=== PATIENT | male | born 1990 | race Caucasian/White ===

== ENCOUNTER 2022-05-11 14:14 | Outpatient (CLI) | payer OTHER, SELFPAY ==
[2022-05-11 15:01] LABS: Mean Corpuscular HGB Conc 32.6 g/dl (32-36); Mean Corpuscular Hemoglobin 29.7 pg (26-34); Mean Corpuscular Volume 91.1 fl (80-100); Mean Platelet Volume 10.5 fl (7.4-10.4); Platelet Count Result 242 k/mm3 (150-375); Red Blood Count 5.05 M/mm3 (4.6-6.20); Red Cell Distribution Width 12.6 % (11.5-14.5); White Blood Count 6.4 K/mm3 (4.5-10.0)
[2022-05-11 16:51] LABS: Iron 120 ug/dL (49-181)
[2022-05-11 17:01] LABS: Percent Iron Saturation 37 % (20-50)
[2022-05-11 17:10] LABS: Vitamin D 25 Hydroxy 59.9 ng/mL
== END 2022-05-11 14:15 | disposition home or self-care (01) ==
LOC: ANHLAB 14:20
PROVIDERS: Visit Provider Nurse Practitioner Family
DX: R53.83 Other fatigue (principal); R40.0 Somnolence
CPT/HCPCS: 36415; 82306; 82607; 82728; 83540; 83550; 84443; 85027

== ENCOUNTER 2022-06-05 07:46 | Outpatient (CLI) | payer OTHER, SELFPAY ==
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
[2022-06-17 12:15] VITALS: BMI 25.1
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
[2022-06-17 12:34] VITALS: BMI 25.1
== END 2022-06-06 15:31 | disposition home or self-care (01) ==
PROVIDERS: Visit Provider Nurse Practitioner Family
DX: G47.19 Other hypersomnia (principal); G47.61 Periodic limb movement disorder; G47.419 Narcolepsy without cataplexy
CPT/HCPCS: 95805; 95810

== ENCOUNTER 2022-08-04 10:54 | Emergency (ER) | payer OTHER, SELFPAY ==
--- NOTE | 2022-08-04 10:59 | ED.URI ---
HPI - URI/Sore Throat General Chief Complaint: Upper Respiratory Infection Stated Complaint: HEADACHE/SORE THROAT/NASAL CONGESTION Time Seen by Provider: 08/04/22 10:59 Source: patient and RN notes reviewed Related Data Allergies Allergy/AdvReac Type Severity Reaction Status Date / Time No Known Allergies Allergy Verified 06/25/22 08:46 Review of Systems Review of Systems: CONSTITUTIONAL: Denies fever, chills, or sweats. EYES: Denies visual changes, redness, or discharge. ENT: Denies rhinorrhea, congestion, sore throat, or otalgia. CARDIOVASCULAR: Denies chest pain, palpitations, or edema. RESPIRATORY: Denies cough or dyspnea. GASTROINTESTINAL: Denies abdominal pain, nausea, vomiting, or diarrhea. GENITOURINARY: Denies dysuria or hematuria. SKIN: Denies rash or itching. MUSCULOSKELETAL: Denies back pain, joint pain, or myalgia. NEUROLOGIC: Denies headache, numbness, or weakness. PSYCHIATRIC: Denies anxiety or depression. All other systems reviewed are negative, except as documented in HPI. [facility] Past Medical History Medical History Narcolepsy PLMD (periodic limb movement disorder) Social History Social History Smoking packs per day: 0.20 Smoking cigarettes per day: 4.0 Years smoked: 4 Smoking pack-years: 0.80 Smoking status: Former smoker Tobacco type: cigarettes Smoking end date: 08/19/10 Alcohol intake: current Alcohol use details: 1-2 beers/week Lack of Transportation: No Lack of Food: Never True Current Housing: I Have Housing Concerned About Future Housing: No Difficulty Paying Gas/Electric Bills: No Difficulty Paying for Meds: No Currently Unemployed: No Education: Master's Degree or Higher Difficulty w/ Childcare or Family Care: No 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 There is no relevant family history pertinent to the patient complaint. Exam Narrative: GENERAL: This is a well-nourished, well-developed patient, in no apparent distress. HEAD: normocephalic, atraumatic. EYES: PERRL. Sclera clear/white. Vision is grossly intact. EARS: External ears normal, auditory canals clear and without drainage, TMs normal without perforation. Hearing grossly intact. NOSE: External nose normal with no obvious nasal discharge, nares without redness, no rhinorrhea. THROAT: Mucous membranes moist, posterior pharynx clear. NECK: Neck supple, non-tender without lymphadenopathy, masses or thyromegaly. CARDIOVASCULAR: Regular rate and rhythm without murmurs, gallops, or rubs. RESPIRATORY: Clear to auscultation. Breath sounds equal bilaterally. No wheezes, rales, or rhonchi. GASTROINTESTINAL: Abdomen soft, non-tender, nondistended. Bowel sounds are active. No hepato-splenomegaly, or palpable masses. No guarding. SKIN: warm, intact with no suspicious lesions or rash, good texture and turgor. NEURO: awake, alert, and oriented to person, place and time. There were no obvious focal neurologic abnormalities. EXTREMITIES: No clubbing, cyanosis, or edema. No joint tenderness, effusion, or edema noted. No calf tenderness. Negative Homans sign bilaterally. BACK: Nontender without deformity or crepitance. No flank tenderness. Course Course Level of Care: Express Care Visit MDM - URI/Sore Throat Differential Diagnosis Differential diagnosis: Likely upper respiratory infection, croup, otitis media, sinusitis, viral infection, bronchitis, influenza and pharyngitis Critical Care Time Critical Care Time Critical Care Time: No Discharge Plan Discharge Prescriptions: No Action modafinil 200 mg tablet 400 mg PO QAM Qty: 60 1RF Follow-up/Referrals: Leyla Villegas DO [Primary Care Provider] -
--- NOTE | 2022-08-04 11:07 | PC.NURSE ---
Addendum entered by Cynthia Campos RN 08/04/22 11:26: Patient refused to be seen in triage or by provider as there are no strep swabs available for rapid testing. Original Note: [id number] Mother refused to have child taken into triage; taken into room and refused to be seen because no strep swabs available for rapid testing.
== END 2022-08-04 10:58 | disposition left against medical advice (07) ==
PROVIDERS: PCP Family Medicine
DX: Z53.21 Procedure and treatment not carried out due to patient leaving prior to being seen by health care provider (principal)
CPT/HCPCS: 99199

== ENCOUNTER 2022-10-10 11:03 | Outpatient (RCR) | payer OTHER, SELFPAY ==
--- NOTE | 2022-07-16 14:55 | PCPTNOTE ---
Patient called & cancelled scheduled evaluation this date due to his daughter being sick.
== END 2022-10-10 11:04 | disposition home or self-care (01) ==
LOC: ANHGOSHPT 11:03
PROVIDERS: PCP Family Medicine; Visit Provider Nurse Practitioner
DX: M54.9 Dorsalgia, unspecified (principal)
CPT/HCPCS: 99199